=== PATIENT | male | born 1965 | race Caucasian/White ===

== ENCOUNTER 2017-10-27 09:13 | Day surgery (SDC) | payer OTHER ==
[~2017-10-27] VITALS: Ht 167.6 cm; Wt 91.7 kg
[~2017-10-27 09:13] MED LIST: ATOR10 PO; Adult Low Dose81 MG PO; ESCI10 PO
--- NOTE | 2017-10-27 10:20 | NUR ---
10/27/17 1020 Willow Ponce V PT RESTING IN BED, SIDE RAILS IN PLACE, CALL LIGHT WITHIN REACH, FAMILY AT BEDSIDE. VSS, PT TEACHING COMPLETED, NO VOICED DISCOMFORT OR QUESTIONS AT THIS TIME.
--- NOTE | 2017-10-27 11:32 | NUR ---
10/27/17 1132 Willow Ponce V LUNG SOUNDS CLEAR THROUGHOUT, PT DENIES PAIN AND NAUSEA, VSS. PT D/C TEACHING COMPLETED; PT DENIES QUESTIONS.
--- NOTE | 2017-10-27 11:35 | NUR ---
10/27/17 1135 Willow Ponce V PT DID START WRETCHING DURION PROCEDURE AND THEN PROCEEDED TO VOMIT SMALL AMMOUNT OF LIGHT COLORED BILE; SUCTION PERFORMED. WRETCHING RESOLVED AFTER ADMINISTRATION OF ZOFRAN. NO OTHER COMPLICATIONS DURING PROCEDURE.
== END 2017-10-27 11:29 | disposition home or self-care (01) ==
LOC: ORSCSDS 09:13
PROVIDERS: Internal Medicine Gastroenterology
PROC: 0DBC8ZX Excision of Ileocecal Valve, Via Natural or Artificial Opening Endoscopic, Diagnostic (ICD-10-PCS; principal; 2017-10-27 10:30)
PROC: 0DBL8ZX Excision of Transverse Colon, Via Natural or Artificial Opening Endoscopic, Diagnostic (ICD-10-PCS; principal; 2017-10-27 10:30)
PROC: 0DBN8ZX Excision of Sigmoid Colon, Via Natural or Artificial Opening Endoscopic, Diagnostic (ICD-10-PCS; principal; 2017-10-27 10:30)
DX: Z12.11 Encounter for screening for malignant neoplasm of colon (principal); D12.2 Benign neoplasm of ascending colon; K63.5 Polyp of colon; K64.8 Other hemorrhoids; K57.30 Diverticulosis of large intestine without perforation or abscess without bleeding; E78.5 Hyperlipidemia, unspecified; I10 Essential (primary) hypertension; Z79.82 Long term (current) use of aspirin; Z79.899 Other long term (current) drug therapy
CPT/HCPCS: 88305; J2405; J7120

== ENCOUNTER → 2018-12-15 | Outpatient (CLI) | payer OTHER ==
[2018-12-15 10:49] LABS: BASOPHILS ABSOLUTE AUTO 0.03 K/mm3 (0.00-0.23); BASOPHILS PERCENT AUTO 0 % (0-2); EOSINOPHILS ABSOLUTE AUTO 0.09 K/mm3 (0.00-0.68); EOSINOPHILS PERCENT AUTO 1 % (0-6); Hematocrit 47.8 % (37.0-53.0); Hemoglobin 15.9 g/dL (13.5-17.5); IMMATURE GRAN ABSOLUTE AUTO 0.02 K/mm3 (0.00-0.10); IMMATURE GRAN PERCENT AUTO 0 % (0-1); LYMPHOCYTES ABSOLUTE AUTO 2.12 K/mm3 (0.84-5.20); LYMPHOCYTES PERCENT AUTO 27 % (21-46); MONOCYTES ABSOLUTE AUTO 0.47 K/mm3 (0.16-1.47); MONOCYTES PERCENT AUTO 6 % (4-13); Mean Corpuscular HGB 31.7 pg (26.0-34.0); Mean Corpuscular HGB Conc 33.3 g/dL (31.5-36.5); Mean Corpuscular Volume 95 fL (80-100); NEUTROPHILS ABSOLUTE AUTO 5.28 K/mm3 (1.96-9.15); NEUTROPHILS PERCENT AUTO 66 % (41-73); Platelet Count 185 K/mm3 (150-400); RDW Coefficient Variation 12.1 % (11.7-14.2); RDW Standard Deviation 42.5 fL (35.1-46.3); Red Blood Cell Count 5.01 M/mm3 (4.30-5.90); White Blood Cell Count 8.01 K/mm3 (4.00-11.30)
[2018-12-15 11:00] LABS: Alanine Aminotransfer (ALT/SGP 37 U/L (12-78); Albumin, Blood 3.7 g/dL (3.4-5.0); Albumin/Globulin Ratio 1.1 (0.8-1.8); Alk Phos 86 U/L (40-126); Anion Gap 7 mmol/L (6-16); Aspartate Aminotrans (AST/SGOT 25 U/L (12-37); Bilirubin, Total 0.4 mg/dL (0.1-1.0); Blood Urea Nitrogen 21 mg/dL (8-24); CO2, Blood 29 mmol/L (21-32); Chloride, Blood 105 mmol/L (98-108); Creatinine, Blood 1.05 mg/dL (0.60-1.20); Globulin, Blood 3.5 g/dL (2.2-4.0); Glomerular Filtration Rate >60 (60-); Glucose, Blood 125 mg/dL (70-99); Sodium, Blood 141 mmol/L (136-145); Total Protein, Blood 7.2 g/dL (6.4-8.2)
== END | disposition home or self-care (01) ==
LOC: LAB EV 10:41 → LAB SHORT 10:41
PROVIDERS: Family Medicine
DX: I10 Essential (primary) hypertension (principal)
CPT/HCPCS: 80053; 85025

== ENCOUNTER → 2019-06-06 | Outpatient (CLI) | payer OTHER ==
[2019-06-06 10:31] LABS: PSA, %Free 5.5 %
[2019-06-06 11:45] LABS: Alanine Aminotransfer (ALT/SGP 51 U/L (12-78); Albumin, Blood 3.7 g/dL (3.4-5.0); Albumin/Globulin Ratio 1.2 (0.8-1.8); Alk Phos 91 U/L (40-126); Anion Gap 13 mmol/L (6-16); Aspartate Aminotrans (AST/SGOT 24 U/L (12-37); Bilirubin, Total 1.1 mg/dL (0.1-1.0); Blood Urea Nitrogen 23 mg/dL (8-24); Bun/Creatinine Ratio 23.7 (12.0-20.0); CO2, Blood 24 mmol/L (21-32); Calcium, Blood 8.5 mg/dL (8.5-10.1); Chloride, Blood 102 mmol/L (98-108); Creatinine, Blood 0.97 mg/dL (0.60-1.20); Glomerular Filtration Rate >60 (60-); Glucose, Blood 110 mg/dL (70-99); Potassium, Blood 4.1 mmol/L (3.5-5.5); Sodium, Blood 139 mmol/L (136-145); Total Protein, Blood 6.7 g/dL (6.4-8.2)
== END | disposition home or self-care (01) ==
LOC: LAB SHORT 08:41 → LAB EV 08:41
PROVIDERS: Family Medicine
DX: R36.1 Hematospermia (principal)
CPT/HCPCS: 80053; 84153; 84154

== ENCOUNTER → 2019-08-29 | Outpatient (CLI) | payer OTHER | END | disposition home or self-care (01) | LOC: PLD 07:41 → LAB SHORT 07:41 | DX: D48.5 Neoplasm of uncertain behavior of skin (principal) | CPT/HCPCS: 88305 ==

== ENCOUNTER 2021-08-29 11:00 | Day surgery (SDC) | payer OTHER ==
[~2021-08-29] VITALS: Ht 167.6 cm; Wt 86.2 kg
[~2021-08-29 11:00] MED LIST changes: +Crestor20 MG PO; +OLME20 PO
--- NOTE | 2021-08-29 11:46 | NUR ---
08/29/21 Deja6 Georgiana Roberts CALL LIGHT WITHIN REACH
== END 2021-08-29 16:10 | disposition home or self-care (01) ==
LOC: ORSCSDS 11:00
PROVIDERS: Orthopaedic Surgery
PROC: 0LQ14ZZ Repair Right Shoulder Tendon, Percutaneous Endoscopic Approach (ICD-10-PCS; principal; 2021-08-29 12:45)
PROC: 0LU14KZ Supplement Right Shoulder Tendon with Nonautologous Tissue Substitute, Percutaneous Endoscopic Approach (ICD-10-PCS; principal; 2021-08-29 12:45)
PROC: 0PB94ZZ Excision of Right Clavicle, Percutaneous Endoscopic Approach (ICD-10-PCS; principal; 2021-08-29 12:45)
DX: M75.111 Incomplete rotator cuff tear or rupture of right shoulder, not specified as traumatic (principal); M75.41 Impingement syndrome of right shoulder; M19.011 Primary osteoarthritis, right shoulder; I10 Essential (primary) hypertension; G47.33 Obstructive sleep apnea (adult) (pediatric); E78.5 Hyperlipidemia, unspecified; Z79.899 Other long term (current) drug therapy
CPT/HCPCS: A9270; C1713; J0171; J0690; J1100; J2001; J2250; J2370; J2405; J2704; J3010; J7120